=== PATIENT | female | born 1945 | race Caucasian/White ===

== ENCOUNTER 2017-10-20 08:49 | Day surgery (SDC) | payer MEDICARE, BC ==
[~2017-10-20] VITALS: Ht 157.5 cm; Wt 61.2 kg
[2017-10-20] VITALS (10 sets, daily range): BP systolic 140–182; BP diastolic 64–76
[2017-10-20] MEDS ORDERED: Dexamethasone 4mg/ml vial ONE (09:02)
[2017-10-20] MEDS ORDERED: Lidocaine 1% Plain 30 ml INJ ONE (09:02)
[2017-10-20] MEDS ORDERED: Bupivacaine 0.5% Inj 30 ml vial INJ ONE (09:03)
[2017-10-20] MEDS ORDERED: ZESTORETIC 10-1 EAC1 PO (09:35)
[2017-10-20] MEDS ORDERED: SIMVASTATIN10 MG ORAL (09:35)
[2017-10-20] MEDS ORDERED: fentaNYL 100 mcg/2 mL IV ONE (10:00)
[2017-10-20] MEDS ORDERED: Midazolam 2mg/2ml Inj ONE (10:00)
[2017-10-20] MEDS ORDERED: NS Irrig 1000ml ONE (10:00)
[2017-10-20] MEDS ORDERED: Sterile Water Irrig 1000ml IRRIG ONE (10:00)
[2017-10-20] MEDS ORDERED: Lidocaine 1% MPF 10mg/ml 5ml ONE (10:00)
[2017-10-20] MEDS ORDERED: LR 1000ml ONE (10:00)
[2017-10-20] MEDS ORDERED: Propofol 200mg/20ml IV ONE (10:02)
[2017-10-20] MEDS ORDERED: DiphenhydrAMINE 50mg/ml Inj ONE (10:09)
--- NOTE | 2017-10-20 10:10 | Pre-Procedure Note/Attestation ---
Pre-Procedure Note/Attestation Complete Prior to Procedure Procedure Narrative: Bunionectomy right foot Indications for Procedure Pre-Operative Diagnosis: Bunion right foot Attestation I attest that I discussed the nature of the procedure; its benefits; risks and complications; and alternatives (and the risks and benefits of such alternatives ), prior to the procedure, with the patient (or the patient's legal business process representative). I attest that, if there was a reasonable possibility of needing a blood transfusion, the patient (or the patient's legal business process representative) was given the [facility] standardized written summary, pursuant to the Miguel Bryn Blood Safety Act ([place] Health and Safety Code # 1645, as amended). I attest that I re-evaluated the patient just prior to the surgery and that there has been no change in the patient's H&P, except as documented below: NIKKIE AVENDAÑO Oct 20, 2017 10:10
--- NOTE | 2017-10-20 10:30 | Immediate Post-Op Evaluation ---
Immediate Post-Op Evalulation Immediate Post-Op Evalulation Procedure: Right foot bunionectomy Date of Evaluation: Oct 20, 2017 Time of Evaluation: 11:11 IV Fluids: 500 Blood Products: 0 Estimated Blood Loss: min Urinary Output: 0 Blood Pressure Systolic: 160 Blood Pressure Diastolic: 70 Pulse Rate: 49 Respiratory Rate: 17 O2 Sat by Pulse Oximetry: 96 Temperature (Fahrenheit): 97 Pain Score (1-10): 0 Nausea: No Vomiting: No Complications 0 Patient Status: awake, reacts, patent, none Hydration Status: adequate Drug: Ancef 1g Given Within 1 Hr of Incision: Yes Time Given: 10:15 SJ GARCES M.D. Oct 20, 2017 10:30
--- NOTE | 2017-10-20 10:30 | Anethesia Preoperative Eval ---
Anesthesia Pre-op PMH/ROS General Date of Evaluation: Oct 20, 2017 Anesthesiologist: Romero ASA Score: ASA 2 Mallampati Score Class I : Soft palate, uvula, fauces, pillars visible Class II: Soft palate, uvula, fauces visible Class III: Soft palate, base of uvula visible Class IV: Only hard plate visible Mallampati Classification: Class II Surgeon: Heather Diagnosis: Right foot bunion Surgical Procedure: Right foot bunionectomy Anesthesia History: none Family History: no anesthesia problems Allergies: Coded Allergies: ACETAMINOPHEN (Verified Allergy, Intermediate, vomiting , 10/20/17) HYDROCODONE (Verified Allergy, Intermediate, vomiting , 10/20/17) Medications: see eMAR Past Medical History Cardiovascular: Reports: HTN, other - HL:D, Denies: CAD, MS, valve dz, arrhythmia Pulmonary: Denies: asthma, COPD, SHERRIE, other Gastrointestinal/Genitourinary: Denies: GERD, CRI, ESRD, other Neurologic/Psychiatric: Denies: dementia, CVA, depression/anxiety, TIA, other Endocrine: Denies: DM, hypothyroidism, steroids, other HEENT: Denies: cataract (L), cataract (R), glaucoma, NEWTOK (L), NEWTOK (R), other Hematology/Immune: Denies: anemia, DVT, bleeding disorder, other Musculoskeletal/Integumentary: Reports: OA, other - gout, Denies: RA, DJD, DDD, edema PSxH Narrative: Denies Anesthesia Pre-op Phys. Exam Physician Exam Last Vital Signs Date Time Temp Pulse Resp B/P (MAP) Pulse Ox O2 Delivery O2 Flow Rate FiO2 10/20/17 09:33 97.4 84 17 140/71 99 Room Air Constitutional: NAD Cardiovascular: RRR Respiratory: CTA Airway Exam Mallampati Score: Class II MO: full ROM: full Anesthesia Pre-op A/P Labs see chart Studies Pre-op Studies: EKG - sr Risk Assessment & Plan Assessment: ASA II Plan: MAC Status Change Before Surgery: No Pre-Antibiotics Drug: Ancef 1g Given Within 1 Hr of Incision: Yes Time Given: 10:15 SJ GARCES M.D. Oct 20, 2017 10:30
[2017-10-20] MEDS ORDERED: LR 1000ml 1,000 ML IVLG SCH (10:31)
--- NOTE | 2017-10-20 10:31 | 48 Hour Post Anesthesia Eval ---
Post Anesthesia Evaluation Procedure: Right foot bunionectomy Date of Evaluation: Oct 20, 2017 Airway: patent Nausea: No Vomiting: No Pain Intensity: 0 Hydration Status: adequate Cardiopulmonary Status: at baseline Mental Status/LOC: patient returned to baseline Post-Anesthesia Complications: 0 Follow-up care needed: ready to discharge SJ GARCES M.D. Oct 20, 2017 10:31
[2017-10-20] MEDS ORDERED: DiphenhydrAMINE 50mg/ml Inj IVP PRN (10:45)
[2017-10-20] MEDS ORDERED: fentaNYL 100 mcg/2 mL IV PRN (10:45)
[2017-10-20] MEDS ORDERED: LORazepam Inj 2mg/ml 1ml IV PRN (10:45)
--- NOTE | 2017-10-20 11:13 | Brief Operative Note ---
Immediate Post Operative Note Operative Note Pre-op Diagnosis: Bunion right foot Procedure: Bunionectomy right foot Post-op Diagnosis: same as pre-op Surgeon: Heather Anesthesiologist: Chloé Anesthesia: MAC Specimen: yes Complications: none Condition: stable Fluids: 50 Estimated Blood Loss: none Drains: none Implant(s) used?: No NIKKIE AVENDAÑO Oct 20, 2017 11:13
--- NOTE | 2017-10-20 12:22 | Diagnostic Imaging Report ---
Indication: Status post bunionectomy Technique: 3 views right foot Comparison: none Findings: There is evidence of bunionectomy. Small amount of gas within the soft tissues likely is retained air from the surgical exposure. There is mild degenerative change of the first metatarsal phalangeal joint. There is metatarsus adductus. Impression: Post surgical changes, as described. No unusual features
--- NOTE | 2017-10-21 01:30 | Operative Note - Dictated ---
DATE OF OPERATION: 10/20/2017 SURGEON: James Romero D.P.M. ANESTHESIOLOGIST: Robyn Luevano M.D. ANESTHESIA: Local standby. PREOPERATIVE DIAGNOSES: 1. Bunion deformity, right foot. 2. Hallux limitus, right foot. POSTOPERATIVE DIAGNOSES: 1. Bunion deformity, right foot. 2. Hallux limitus, right foot. PROCEDURE PERFORMED: Modified Serra bunionectomy right foot DESCRIPTION OF THE OPERATION: The patient was brought to the operating room and was placed on the operating room table in the supine position. Intravenous sedation was administered by the anesthesiologist. Local anesthesia consisting of 0.5% Marcaine plain total of 17 mL was administered to the right hallux. An ankle tourniquet was applied to the right lower extremity. The foot was prepped and draped in usual sterile manner. An Esmarch bandage was utilized to exsanguinate the blood and the right ankle tourniquet was inflated to 250 mmHg. Attention was directed to the first metatarsophalangeal joint where an approximately 6 cm dorsal linear skin incision was performed. The incision was deepened utilizing sharp and blunt dissection with care being taken to cauterize and ligate all bleeders. At the level of the capsule, a linear capsulotomy was carried. The capsule was reflected medially and laterally and the first metatarsal head was exposed. Utilizing a sagittal saw, the medial eminence and dorsal exostosis were removed in toto. The remaining bone was rasped smooth. The wound was then copiously flushed utilizing sterile saline. At this point, a lateral release was performed and the lateral capsule along the lateral collateral ligament and abductor hallucis were severed and the hallux was brought into a rectus position. The wound was copiously flushed utilizing sterile saline. At this point, the capsule was reapproximated utilizing 3-0 Vicryl in a simple interrupted type stitch. The subcutaneous tissue was then reapproximated utilizing 4-0 Vicryl in a buried knot type stitch. The skin was then reapproximated utilizing 4-0 nylon in a simple interrupted type stitch. The wound was dressed utilizing an Adaptic, 4 x 4, and 3-inch Eleazar. The right ankle tourniquet was deflated and vascular supply was noted to all digits of right foot. The patient tolerated the procedure well and left the operating room to recovery room with all vital signs stable. James Romero D.P.M. DR: ESPERANZA JOB#: [id number] CC: TAYLOR
--- NOTE | 2017-10-21 03:45 | Pre-op HX & Phy Repo 2 SIG ---
DATE OF ADMISSION: 10/20/2017 PODIATRIC HISTORY AND PHYSICAL HISTORY OF PRESENT ILLNESS: This is a 72-year-old white female who is admitted today for an outpatient bunionectomy of her right foot. The patient has been under my care for the past year for painful bunions bilaterally. She attempted to control the pain with change in her shoe gear and padding of her bunions without any success and the patient elected to undergo elective surgery to alleviate the pain. PAST MEDICAL HISTORY: Remarkable for hypertension, gastritis, tinnitus, and hypercholesterolemia. MEDICATIONS: Simvastatin, Clarinex, and Zestoretic. ALLERGIES: Vicodin. PODIATRIC PHYSICAL EXAMINATION: EXTREMITIES: Reveals vascular supply of the dorsalis pedis and posterior tibial arteries are measuring 1/4 bilaterally. The capillary filling time is less than 4 seconds to all digits bilaterally. Homans sign is negative. Mild varicosities are noted in bilateral lower extremity. NEUROLOGICAL: Reflexes, Achilles and patellar are measuring 2/4 bilaterally. Sensation, proprioception, and vibration sensation are all intact in bilateral lower extremity. Babinski is negative. Clonus is absent in bilateral lower extremity. MUSCULOSKELETAL: Reveals a bunion deformity and reduced range of motion of the first metatarsophalangeal joint bilaterally. Mild crepitation is noted with range of motion of the first metatarsophalangeal joint. There is also nonreducible hammertoe deformity of digits #2 through #5 bilaterally. No other structural deformities are noted bilaterally. DERMATOLOGICAL: Reveals dystrophic nails which are mycotic bilaterally. No scars or ulcerations are noted bilaterally. ASSESSMENT: 1. Hallux limitus bilaterally. 2. Bunion deformity bilaterally. PLAN: The patient is admitted today for bunionectomy of the right foot. Postoperative instructions were given to the patient. Postoperative medication was dispensed and the patient elects to proceed with surgery. James Romero D.P.M. DR: Tabatha JOB#: [id number] CC:
[2017-10-21 06:46] VITALS: BP 160/70
== END 2017-10-20 13:30 | disposition home or self-care (01) ==
LOC: SUR 08:49
DX: M21.611 Bunion of right foot (principal); M20.5X1 Other deformities of toe(s) (acquired), right foot; I10 Essential (primary) hypertension; E78.00 Pure hypercholesterolemia, unspecified; M19.90 Unspecified osteoarthritis, unspecified site; Z88.6 Allergy status to analgesic agent
CPT/HCPCS: 28292; 73630; J0360; J0690; J1100; J1200; J2250; J2405; J2704; J3010; J3490; J7120; 94003; 94150